=== PATIENT | male | born 1995 | race Hispanic/Latino ===

== ENCOUNTER 2017-02-03 12:07 | Day surgery (SDC) | payer SELFPAY, OTHER ==
--- NOTE | 2017-02-03 13:09 | RAD ---
RIGHT FOREARM TWO VIEWS: HISTORY: Right arm injury with laceration. FINDINGS: An extensive laceration of the forearm is apparent. A transversely oriented cylindrical/spear-shape d radiopaque foreign body between the mid radial and ulnar shafts is 2.1 cm in length x 0.3 cm in di ameter. IMPRESSION: Deeply embedded radiopaque foreign body at the interosseous membrane, between the mid shafts of the radius and ulna. POS: ANUSHA
[2017-02-03 14:43] LABS: #Basophils 0.1 thou/uL (0.0-0.2); #Lymphocytes 2.3 thou/uL (1.20-3.40); #Monocytes 0.9 thou/uL (0.11-0.59); #Neutrophils 7.2 thou/uL (1.40-6.50); %Basophils 0.7 % (0.0-1.0); %Eosinophils 0.3 % (0.0-10.0); %Lymphocytes 21.9 % (21.0-51.0); %Monocytes 8.2 % (0.0-10.0); Hematocrit 46.6 % (42.0-52.0); Mean Platelet Volume 6.6 fL (7.4-10.4); Red Blood Cell (RBC) Count 5.02 mill/uL (4.70-6.10); White Blood Cell (WBC) Count 10.4 thou/uL (4.8-10.8)
[2017-02-03] MEDS ORDERED: Adacel (T-DAP) 0.5 ML VIAL ONE (14:54)
[2017-02-03] MEDS ORDERED: CEFAZOLIN/Water 2 GM/20 ML SYRINGE ONE (14:54)
[2017-02-03 15:09] LABS: ALT (SGPT) 24 U/L (8-55); AST (SGOT) 24 U/L (5-34); Alkaline Phosphatase 71 U/L (40-150); Anion Gap 13 mmol/L (10-20); BUN (Urea Nitrogen) 9 mg/dL (8.9-20.6); Bilirubin, Total 0.7 mg/dL (0.2-1.2); Calc. Creatinine Clearance 0 mL/min (70-130); Calcium 10.2 mg/dL (7.8-10.44); Carbon Dioxide 28 mmol/L (22-29); Chloride 102 mmol/L (98-107); Estimated GFR-MDRD Greater than 90; Globulin 3.5 g/dL (2.4-3.5); Protein, Total 8.7 g/dL (6.0-8.3)
[2017-02-03] MEDS ORDERED: Fentanyl 100 MCG/2 ML VIAL ONE ×2 (15:20→15:36)
[2017-02-03] MEDS ORDERED: Neomycin-Polymyxin 1 ML AMP ONE (15:27)
[2017-02-03] MEDS ORDERED: Promethazine HCl 25 MG/ML VIAL IM PRN (15:39)
[2017-02-03] MEDS ORDERED: Ondansetron HCl/PF 4 MG/2 ML Vial IVP PRN (15:39)
[2017-02-03] MEDS ORDERED: Meperidine HCl/PF 25 MG/ML VIAL SLOW IVP PRN (15:39)
[2017-02-03] MEDS ORDERED: Promethazine HCl 25 MG/ML VIAL SLOW IVP PRN (15:39)
[2017-02-03] MEDS ORDERED: Ketorolac Tromethamine 30 MG/ML VIAL ONE (15:57)
[2017-02-03] MEDS ORDERED: Succinylcholine Chloride 20 MG/ML 10 ml SYRINGE FS ONE (15:57)
[2017-02-03] MEDS ORDERED: Lidocaine 2% MPF 10 ML AMP (For Epidural Use) ONE (15:57)
[2017-02-03] MEDS ORDERED: Propofol 200 MG/20 ML VIAL ONE (15:57)
[2017-02-03] MEDS ORDERED: Ondansetron HCl/PF 4 MG/2 ML Vial ONE (15:57)
[2017-02-03] MEDS ORDERED: Dexamethasone 20 MG/5 ML VIAL ONE (15:57)
[2017-02-03] MEDS ORDERED: Bupivacaine/Epinephrine 0.25% 30 ML VIAL ONE (16:23)
--- NOTE | 2017-02-03 16:54 | HP ---
DATE OF ADMISSION: 02/03/2017 REQUESTING PHYSICIAN: Johan Leonard M.D. ATTENDING SURGEON: Dawit Burger DO CONSULTATIONS: Orthopedics, Medardo Roblero M.D. HISTORY OF PRESENT ILLNESS: The patient is a 21-year-old man who was trying to push a locked window open of his house when his arm went through it. He sustained a puncture wound and foreign bodies t o his right forearm. He was able to remove a large piece of glass from his forearm but was felt shabnam t there was more inside. Upon examination in the emergency department and on radiographic review, i t was noted that the patient had a retained foreign body in his mid forearm located between the radi us and ulna. This was not palpable with superficial probing of the wound, at which time we were ask ed to evaluate the patient for short stay admission and obtain consultation by Orthopedic Surgery. MEDICATIONS: None. ALLERGIES: None. PAST SURGICAL HISTORY: None. PAST MEDICAL HISTORY: None. FAMILY MEDICAL HISTORY: \\\\"I believe high blood pressure.\\\\" SOCIAL HISTORY: The patient is a maintenance supervisor electrical. Denies tobacco use. Does report that he smok es marijuana almost daily and occasional ETOH. REVIEW OF SYSTEMS: A ten-point review of systems was negative, unless otherwise stated. PHYSICAL EXAMINATION: VITAL SIGNS: Blood pressure 133/87, heart rate 79, respirations 18, temperature is 98.1, oxygen sat uration is 99% on room air. HEENT: Atraumatic and normocephalic. Eyes: Extraocular motion intact. PERRLA bilaterally. Nose is atraumatic without discharge. Ears are atraumatic without discharge. Oropharynx is clear. NECK: Nontender. Trachea is midline. No JVD. CHEST: Clear to auscultation bilaterally with good inspiratory and expiratory effort. HEART: Regular rate and rhythm. ABDOMEN: Soft, flat, and nontender. PELVIC: Stable. EXTREMITIES: The left upper and bilateral lower extremities show full active range of motion, atrau matic, neurovascularly intact x3. The right upper extremity shows an approximately 5 mm puncture wo und to the mid forearm dorsally, essentially at the mid forearm. There does not appear to be a thro ugh and through wound. The patient is neurovascularly intact distally. BACK: Atraumatic and nontender. LABORATORY FINDINGS: White blood cell count 10.4, hemoglobin 15.6, hematocrit 46.6, platelets 326. RADIOGRAPHIC FINDINGS: Two views of the right forearm show a deeply imbedded radiopaque foreign bod y at the interosseous membrane between the mid shaft of the radius and ulna. ASSESSMENT: Status post retained foreign body in the right forearm. Plan will be to admit the patient to observation for irrigation and removal of this foreign body by Orthopedics, make the patient n.p.o., update his tetanus, 2 grams of Ancef, and await for anesthesia clearance. The evaluation, examination, radiographic, and laboratory findings were all discussed w ith the patient and Dr. Burger at the time of dictation. All questions were answered and everyone wa s agreement with this plan.
--- NOTE | 2017-02-03 22:20 | OP ---
DATE OF OPERATION: 02/03/2017 PREOPERATIVE DIAGNOSIS: Foreign body (shard of glass) deep in the mid right forearm. POSTOPERATIVE DIAGNOSIS: Foreign body (shard of glass) deep in the mid right forearm. PROCEDURE: Irrigation and debridement and removal of foreign body (shard of glass) in the right for earm. SURGEON: Medardo Roblero M.D. ANESTHESIA: General. TECHNIQUE: The patient was given preoperative IV antibiotics, taken to the operating room and place d in the supine position. Satisfactory general anesthesia was performed. The right upper extremity was sterilely prepped and draped in the usual fashion. After exsanguination, the tourniquet was ra ised to 250 mmHg at the arm. Patient had a 2 cm laceration over the dorsum of the mid forearm. The flaps of skin were excised and the laceration was extended proximally and distally for another cent imeter. Blunt dissection was made down to the interosseous membrane. The C-arm was used to locate the shard of glass that had led and therefore could be seen on x-ray and was removed. The glass was approximately 4 mm in width and 2.5 cm in length. The wound was then copiously irrigated with anti biotic solution. The superficial muscle on the extensor aspect of the mid forearm was repaired usin g 0 Vicryl with interrupted simple sutures. Fat and subcutaneous tissue was closed with Vicryl and the skin was closed with 3-0 Rapide. The wound was then infiltrated with 0.25% Marcaine with epinep hrine, a total of 20 mL was utilized. Sterile dressing was applied. The tourniquet was released. The patient was awakened, extubated, and transferred to recovery room in stable condition. ESTIMATED BLOOD LOSS: Minimal. COMPLICATIONS: None. TOURNIQUET TIME: 14 minutes. DISCHARGE MEDICATIONS: 1. Augmentin 875 mg twice a day #14. 2. Tylenol #3 one every 6 hours as needed for pain, #40. Follow up in my office in 2 weeks.
== END 2017-02-04 17:40 | disposition home or self-care (01) ==
LOC: ERS 12:07 → SDC 02-04 16:40
PROVIDERS: ATTEND Anesthesiology
PROC: 0JDD0ZZ Extraction of Right Upper Arm Subcutaneous Tissue and Fascia, Open Approach (ICD-10-PCS; principal; 2017-02-04)
DX: S51.821A Laceration with foreign body of right forearm, initial encounter (principal); F12.90 Cannabis use, unspecified, uncomplicated; Y92.019 Unspecified place in single-family (private) house as the place of occurrence of the external cause
CPT/HCPCS: 36415; 76000; 80053; 85025; 90471; 90715; 96374; J1100; J1170; J1885; J2001; J2405; J2704; J3010

== ENCOUNTER 2017-10-22 18:07 | Emergency (ER) | payer OTHER, SELFPAY ==
[2017-10-22] MEDS ORDERED: Dexamethasone 4 mg/ml Vial ONE (19:22)
== END 2017-10-22 19:45 | disposition home or self-care (01) ==
LOC: ERS 18:07
DX: J02.0 Streptococcal pharyngitis (principal)
CPT/HCPCS: 87081; 87430; 99283; J1100

== ENCOUNTER 2017-10-24 09:43 | Emergency (ER) | payer SELFPAY ==
[2017-10-24] MEDS ORDERED: Ketorolac Tromethamine 60 MG/2 ML VIAL ONE (10:00)
[2017-10-24] MEDS ORDERED: Acetaminophen 500 MG TAB ONE (10:00)
[2017-10-24 10:27] LABS: MONO NEGATIVE CONTROL ZONE White (Negative) (White); MONO POSITIVE CONTROL Pink Line (Positive) (PINK/RED); Mononucleosis NEGATIVE (NEGATIVE)
== END 2017-10-24 11:02 | disposition home or self-care (01) ==
LOC: ERS 09:43
DX: J02.9 Acute pharyngitis, unspecified (principal); Z79.899 Other long term (current) drug therapy
CPT/HCPCS: 36415; 86308; 96372; J1885